=== PATIENT | male | born 1975 | race Caucasian/White ===

== ENCOUNTER → 2016-05-18 | Outpatient (REF) | payer OTHER | LOC: M LAB REF 09:17 | DX: L03.119 Cellulitis of unspecified part of limb (principal) ==

== ENCOUNTER → 2016-05-19 | Outpatient (REF) | payer OTHER | LOC: M LAB REF 16:18 | PROVIDERS: ATTEND Surgery | DX: L02.415 Cutaneous abscess of right lower limb (principal) ==

== ENCOUNTER → 2016-05-21 | Outpatient (REF) | payer OTHER | LOC: M LAB REF 16:12 | PROVIDERS: ATTEND Surgery | DX: L02.415 Cutaneous abscess of right lower limb (principal) ==

== ENCOUNTER → 2016-10-23 | Outpatient (CLI) | payer OTHER ==
--- NOTE | 2016-10-23 19:23 | REP ---
RIGHT ELBOW, FOUR VIEWS: There is no evidence of an acute fracture, dislocation or intrinsic bone disease. IMPRESSION: No fracture or dislocation. Signed by Edouard Hampton MD 10/23/2016 07:30 P
== END ==
LOC: M LRY 18:50
PROVIDERS: ATTEND Physician Assistant
DX: M25.521 Pain in right elbow (principal)